=== PATIENT | male | born 1955 | race Caucasian/White ===

== ENCOUNTER 2019-10-15 07:16 | Emergency (ER) | payer MEDICARE ==
[~2019-10-15] VITALS: Ht 190.5 cm; Wt 72.7 kg
[~2019-10-15 07:16] MED LIST: ASPI-1265 PO; CARI350T PO; CHOL2000 PO; CLON-514 PO; FURO20TA4 PO; LISI-642 PO; METO-395 PO; MULT-1085 PO; OXYC30TA88 PO
[2019-10-15 08:08] LABS: BASOPHILS # (AUTO) 0.1 X10'3 (0-0.2); BASOPHILS % (AUTO) 0.8 % (0-1); EOSINOPHILS % (AUTO) 0.5 % (0-6); HEMATOCRIT 40.1 % (42.0-52.0); HEMOGLOBIN 13.4 g/dl (14.0-17.9); LYMPHOCYTES # (AUTO) 1.2 X10'3 (1.1-4.8); LYMPHOCYTES % (AUTO) 13.4 % (21-51); MEAN CORPUSCULAR HEMOGLOBIN 29.6 PG (27.0-31.0); MEAN CORPUSCULAR HGB CONC 33.5 g/dL (33.0-36.5); MEAN CORPUSCULAR VOLUME 88.3 FL (78-98); MEAN PLATELET VOLUME 8.5 FL (7.4-10.4); MONOCYTES # (AUTO) 0.6 X10'3 (0-0.9); NEUTROPHILS # (AUTO) 6.8 X10'3 (1.8-7.7); NEUTROPHILS % (AUTO) 78.3 % (42-75); PLATELET COUNT 324 X10'3 (140-440); RED BLOOD COUNT 4.54 X10'6 (4.70-6.10); RED CELL DISTRIBUTION WIDTH 14.7 % (11.5-14.5); WHITE BLOOD COUNT 8.6 X10'3 (4.5-11.0)
[2019-10-15] MEDS ORDERED: diphenhydrAMINE 50 mg/ml inj IV ONE (08:20)
[2019-10-15] MEDS ORDERED: ketorolac tromethamine 15mg/ml inj. IV ONE (08:20)
[2019-10-15 08:21] LABS: ALANINE AMINOTRANSFERASE 19 U/L (12-78); ALBUMIN 3.9 G/DL (3.4-5.0); ALBUMIN/GLOBULIN RATIO 0.8 (1.1-1.5); ALKALINE PHOSPHATASE 106 IU/L (46-116); ANION GAP 7 (8-16); ASPARTATE AMINO TRANSFERASE 18 U/L (10-37); BILIRUBIN,TOTAL 0.6 MG/DL (0.1-1.0); BLOOD UREA NITROGEN 7 MG/DL (7-18); CALCIUM 9.9 MG/DL (8.5-10.1); CHLORIDE 101 MMOL/L (99-107); CREATININE 0.88 MG/DL (0.60-1.10); GLUCOSE 110 MG/DL (70-104); MAGNESIUM 2.3 MG/DL (1.5-2.4); POTASSIUM 3.6 MMOL/L (3.5-5.1); SODIUM 141 MMOL/L (135-145); TOTAL CARBON DIOXIDE 33.1 MMOL/L (24-32); TOTAL PROTEIN 8.5 G/DL (6.4-8.2); eGFR 87 ML/MIN
--- NOTE | 2019-10-15 08:43 | NUR ---
patient ambulated to the bathroom off of oxygen, when he walks he walks hunched over and says that is his baseline. when back in the bed at first his oxygen on room air was 94% but as he sat on the bed hunched over he de-sat to 89% and HR was in the 100's but quickly came back up to 90%-92% but I put him back on 1LNC and after he was resting for a few minutes he was sat'ing back up to 98% on the 1LNC and HR was back down to 81
--- NOTE | 2019-10-15 09:15 | NUR ---
attempted IV x3. unable to establish iv. Spoke wtih dr glez and changed torodol to IM. will admin once available.
[2019-10-15] MEDS ORDERED: ketorolac tromethamine 15mg/ml inj. IM ONE (09:20)
--- NOTE | 2019-10-15 09:21 | NUR ---
spoke with dr glez about nikkie from speaking to son MARLO and giving information for at home. spoke wtih Tod and stated will come to [facility] [employer] mother in 15 min. DC pending Addendum: 10/15/19 at 0924 by [email or web address] wrong pt.
[2019-10-15] MEDS ORDERED: NAPR-56 PO (10:18)
[2019-10-15 10:36] VITALS: BP 126/64
== END 2019-10-15 10:39 | disposition home or self-care (01) ==
LOC: ER 07:17
DX: F43.20 Adjustment disorder, unspecified (principal); R07.89 Other chest pain; I10 Essential (primary) hypertension; F41.9 Anxiety disorder, unspecified; Z87.891 Personal history of nicotine dependence; Z88.8 Allergy status to other drugs, medicaments and biological substances; Z79.82 Long term (current) use of aspirin; Z79.899 Other long term (current) drug therapy; Z98.890 Other specified postprocedural states
CPT/HCPCS: 36415; 71046; 80053; 83735; 84484; 85025; 96372; 99285; J1885

== ENCOUNTER 2021-05-18 15:15 | Emergency (ER) | payer MEDICARE ==
[~2021-05-18] VITALS: Ht 182.9 cm; Wt 68.0 kg
[~2021-05-18 15:15] MED LIST changes: -CLON-514 PO; +CLON1TAB96 PO; +OXYC30TA PO; -OXYC30TA88 PO
[2021-05-18 16:25] LABS: BASOPHILS % (AUTO) 0.1 % (0-1); EOSINOPHILS % (AUTO) 0 % (0-6); HEMATOCRIT 43.1 % (42.0-52.0); HEMOGLOBIN 14.6 g/dl (14.0-17.9); LYMPHOCYTES # (AUTO) 0.5 X10'3 (1.1-4.8); LYMPHOCYTES % (AUTO) 2.1 % (21-51); MEAN CORPUSCULAR HEMOGLOBIN 29.9 PG (27.0-31.0); MEAN CORPUSCULAR HGB CONC 33.9 g/dL (33.0-36.5); MEAN CORPUSCULAR VOLUME 88.1 FL (78-98); MEAN PLATELET VOLUME 8.6 FL (7.4-10.4); MONOCYTES % (AUTO) 4.6 % (2-12); NEUTROPHILS # (AUTO) 20.3 X10'3 (1.8-7.7); NEUTROPHILS % (AUTO) 93.2 % (42-75); PLATELET COUNT 390 X10'3 (140-440); RED CELL DISTRIBUTION WIDTH 14.2 % (11.5-14.5); WHITE BLOOD COUNT 21.8 X10'3 (4.5-11.0)
[2021-05-18 16:40] LABS: ALANINE AMINOTRANSFERASE 19 U/L (12-78); ALBUMIN 3.8 G/DL (3.4-5.0); ALBUMIN/GLOBULIN RATIO 0.8 (1.1-1.5); ALKALINE PHOSPHATASE 116 IU/L (46-116); ANION GAP 11 (8-16); ASPARTATE AMINO TRANSFERASE 18 U/L (10-37); BILIRUBIN,TOTAL 0.8 MG/DL (0.1-1.0); BLOOD UREA NITROGEN 16 MG/DL (7-18); BUN/CREATININE RATIO 16.7 (5.4-32.0); CALCIUM 9.3 MG/DL (8.5-10.1); CHLORIDE 102 MMOL/L (99-107); CREATININE 0.96 MG/DL (0.60-1.10); GLUCOSE 142 MG/DL (70-104); POTASSIUM 4.6 MMOL/L (3.5-5.1); SODIUM 144 MMOL/L (135-145); TOTAL PROTEIN 8.6 G/DL (6.4-8.2); eGFR 79 ML/MIN
[2021-05-18] MEDS ORDERED: iohexol 350MG/ML 100ml bottle IV ONE (16:59)
[2021-05-18] MEDS ORDERED: normal saline 1000ML IV soln IVB ONE (17:25)
[2021-05-18] MEDS ORDERED: ipratropium/albuterol 3ml nebule NEB ONE (17:40)
[2021-05-18] MEDS ORDERED: methylPREDNISolone sod succ 125mg/2ml vial IV ONE (17:40)
[2021-05-18] MEDS ORDERED: CefTRIAXone/D5W-Rocephin 1gm 50 ML IV ONE (18:55)
[2021-05-18] MEDS ORDERED: LORazepam 2 mg/ml vial IM ONE (19:00)
[2021-05-18] MEDS ORDERED: METH4TAB81 PO (19:28)
[2021-05-18] MEDS ORDERED: AMOX-117 PO (19:28)
[2021-05-18 23:57] VITALS: BP 113/82
== END 2021-05-18 23:59 | disposition home or self-care (01) ==
LOC: ER 15:15
DX: R00.0 Tachycardia, unspecified (principal); Z20.822 Contact with and (suspected) exposure to COVID-19; R06.02 Shortness of breath; J43.9 Emphysema, unspecified; F41.9 Anxiety disorder, unspecified; R05.9 Cough, unspecified; I10 Essential (primary) hypertension; G89.29 Other chronic pain; Z87.01 Personal history of pneumonia (recurrent); Z98.890 Other specified postprocedural states; Z91.030 Bee allergy status; Z79.82 Long term (current) use of aspirin; Z79.899 Other long term (current) drug therapy
CPT/HCPCS: 36415; 71275; 80053; 83605; 83735; 83880; 84145; 84484; 85025; 87040; 87635; 94640; 96361; 96372; 96374; 96375; 99285; C9803; J0696; J2060; J2930; J7030; Q9967